=== PATIENT | female | born 1990 | race Caucasian/White ===

== ENCOUNTER 2018-06-24 09:36 | Emergency (ER) | payer OTHER ==
[2018-06-24 09:47] VITALS: BMI 29.8
--- NOTE | 2018-06-24 10:28 | PDOC ---
History of Present Illness <Fabi Suresh - Last Filed: 06/24/18 13:30> - General History Source: Patient Exam Limitations: Language Barrier <Eryn Navarro - Last Filed: 06/24/18 14:26> - General Chief Complaint: Vaginal Bleeding Stated Complaint: VAGINAL BLEEDING Time Seen by Provider: 06/24/18 09:52 Past History <Fabi Suresh - Last Filed: 06/24/18 13:30> - Past Medical History COPD: No - Immunization History Immunization Up to Date: Yes - Suicide/Smoking/Psychosocial Hx Smoking History: Never smoked Information on smoking cessation initiated: No Hx Alcohol Use: No Drug/Substance Use Hx: No <Eryn Navarro - Last Filed: 06/24/18 14:26> - Past Medical History Allergies/Adverse Reactions: Allergies Allergy/AdvReac Type Severity Reaction Status Date / Time No Known Allergies Allergy Verified 06/24/18 09:44 Home Medications: Ambulatory Orders Ferrous Sulfate [Feosol] 325 mg PO DAILY 10/11/17 Vitamins (Sjr) - 1 tab PO DAILY 10/11/17 *Physical Exam - Vital Signs Last Vital Signs Temp Pulse Resp BP Pulse Ox 98.7 F 98 H 17 122/99 100 06/24/18 09:44 06/24/18 09:44 06/24/18 09:44 06/24/18 09:44 06/24/18 09:44 <Fabi Suresh - Last Filed: 06/24/18 13:30> - Vital Signs Last Vital Signs Temp Pulse Resp BP Pulse Ox 98.7 F 98 H 17 122/99 100 06/24/18 09:44 06/24/18 09:44 06/24/18 09:44 06/24/18 09:44 06/24/18 09:44 - Physical Exam General Appearance: No: Apparent Distress Respiratory/Chest: positive: Lungs Clear, Normal Breath Sounds. negative: Respiratory Distress Cardiovascular: positive: Regular Rhythm, Regular Rate, S1, S2. negative: Murmur Gastrointestinal/Abdominal: positive: Normal Bowel Sounds, Soft. negative: Tender, Distended, Guarding, Rebound Neurologic: positive: Alert, Normal Mood/Affect <Eryn Navarro - Last Filed: 06/24/18 14:26> Moderate Sedation - Procedure Monitoring Vital Signs: Procedure Monitoring Vital Signs Temperature 98.7 F 06/24/18 09:44 Pulse Rate 98 H 06/24/18 09:44 Respiratory Rate 17 06/24/18 09:44 Blood Pressure 122/99 06/24/18 09:44 O2 Sat by Pulse Oximetry (%) 100 06/24/18 09:44 <SureshFabi Demetricealexishugo - Last Filed: 06/24/18 13:30> - Procedure Monitoring Vital Signs: Procedure Monitoring Vital Signs Temperature 98.7 F 06/24/18 09:44 Pulse Rate 98 H 06/24/18 09:44 Respiratory Rate 17 06/24/18 09:44 Blood Pressure 122/99 06/24/18 09:44 O2 Sat by Pulse Oximetry (%) 100 06/24/18 09:44 <Eryn Navarro - Last Filed: 06/24/18 14:26> ED Treatment Course - LABORATORY CBC & Chemistry Diagram: 06/24/18 10:51 06/24/18 10:51 - ADDITIONAL ORDERS Additional order review: Laboratory Results 06/24/18 06/24/18 06/24/18 10:51 10:51 10:51 Sodium 136 Potassium 4.1 Chloride 106 Carbon Dioxide 23 Anion Gap 7 L BUN 8 Creatinine 0.7 Creat Clearance w eGFR > 60 Random Glucose 91 Calcium 8.4 L Urine HCG, Qual Negative Blood Type A POSITIVE Antibody Screen Negative 06/24/18 10:51 RBC 3.28 L MCV 79.5 L MCHC 33.9 RDW 14.6 MPV 8.1 Neutrophils % 73.8 Lymphocytes % 19.8 Monocytes % 4.8 Eosinophils % 1.2 Basophils % 0.4 <Fabi Suresh - Last Filed: 06/24/18 13:30> - LABORATORY CBC & Chemistry Diagram: 06/24/18 10:51 06/24/18 10:51 <Eryn Navarro - Last Filed: 06/24/18 14:26> Medical Decision Making - Medical Decision Making The patient was seen and evaluated in conjunction with midlevel provider under my direct supervision, ancillary studies were reviewed. I agree with the plan as outlined by Eryn Navarro. HPI, workup/dispo as outlined. of note, anemia noted, pelvic sono with echogenic masslike density, ?clot vs mass /polyp, will f/u closely with field advisor arranged for appt tomorrow, Dr Dill/Dr Pelletier recs for iron and vit c dc in stable condition, return precautions or worsening sx advised. otc analgesia 06/24/18 13:30 <Fabi Suresh - Last Filed: 06/24/18 13:30> - Medical Decision Making 27 y/o F with no sig pmh presents with vaginal bleeding since March after getting Depo shot, getting worse the past 8 days. Mentions she was due for repeat Depo shot in May, but given heavy bleeding, she was switched to PO OCPs. Saw her DECAY CONTROL OPERATOR 3 days ago, who told her the bleeding is likely side effect of Depo and advised to double the dosage of her OCPs. However, has yet to notice any improvement in her vaginal bleeding. States is going through around 3 pads/hour and is feeling fatigue, weak and a bit lightheaded. Denies sob, cp, abd pain, n/v, dysuria. Heavy vaginal bleeding Plan: UCG, CBC, BMP, type and screen, pelvic ultrasound 06/24/18 10:28 Labs show patient is anemic, though Hgb is >7 Ultrasound done shows large echogenic masslike density within endometrial cavity measuring 2.2 x 1.4 cm which could possibly be large blood clot vs mass/ polyp Patient discussed with Dr. Dill, who stated patient will need hysteroscopy for further evaluation Recommended sending patient home on Iron TID and Vitamin C daily [patient states she will buy from pharmacy]; states patient can f/u with Dr. Pelletier tomorrow on [facility] Plan discussed with patient Stable for d/c 06/24/18 13:22 <Eryn Navarro - Last Filed: 06/24/18 14:26> *DC/Admit/Observation/Transfer <Fabi Suresh - Last Filed: 06/24/18 13:30> - Discharge Dispostion Decision to Admit order: No <Eryn Navarro - Last Filed: 06/24/18 14:26> Diagnosis at time of Disposition: Vaginal bleeding - Discharge Dispostion Disposition: HOME Condition at time of disposition: Stable - Referrals Referrals: Melissa Pelletier MD [Staff Physician] - Call tomorrow - Patient Instructions Printed Discharge Instructions: DI for Vaginal Bleeding Additional Instructions: Thank you for choosing [facility]. It was a pleasure taking care of you. Your labs indicated you are anemic, likely from the vaginal bleeding Please take Iron three time a day and Vitamin C daily - you can get this over the counter Please follow-up with DECAY CONTROL OPERATOR Dr. Pelletier for further evaluation of your bleeding Return to the Emergency Department if your symptoms worsen or persist or have other concerning symptoms. [place] por elegir el [facility]. Fue un placer cuidar de ti. Valarie laboratorios indicaron que usted es anmico, probablemente debido al sangrado vaginal [place] Nery yanelis veces al da y Vitamina C todos los castaneda. Puede obtener esto sin receta. Por favor, anabell un seguimiento con el obstetra / gineclogo Dr. Pelletier para jaquan evaluacin adicional de cisneros sangrado Regrese al Departamento de Emergencias si valarie sntomas empeoran o persisten o si tiene otros sntomas relacionados. Print Language: DIVEHI
[2018-06-24 11:09] LABS: BASO % 0.4 % (0-2.0); EOS % 1.2 % (0-4.5); HEMATOCRIT 26.1 % (32.4-45.2); HEMOGLOBIN 8.8 GM/dL (10.7-15.3); LYMPH % 19.8 % (8-40); MCH 26.9 pg (25.7-33.7); MCHC 33.9 g/dl (32.0-36.0); MEAN CELL VOLUME 79.5 fl (80-96); MEAN PLT VOLUME 8.1 fl (7.5-11.1); MONO % 4.8 % (3.8-10.2); NEUT % 73.8 % (42.8-82.8); PLATELET COUNT 386 K/MM3 (134-434); RBC 3.28 M/mm3 (3.60-5.2); RDW 14.6 % (11.6-15.6); WHITE BLOOD COUNT 8.3 K/mm3 (4.0-10.0)
[2018-06-24 11:23] LABS: ANION GAP 7 MMOL/L (8-16); BLOOD UREA NITROGEN 8 mg/dL (7-18); CALCIUM 8.4 mg/dL (8.5-10.1); CHLORIDE 106 mmol/L (98-107); CO2 23 mmol/L (21-32); CREATININE 0.7 mg/dL (0.55-1.3); GLUCOSE,RANDOM 91 mg/dL (74-106); POTASSIUM 4.1 mmol/L (3.5-5.1); SODIUM 136 mmol/L (136-145)
[2018-06-24 14:58] VITALS: BP 127/69; PULSE 97; TEMP 98.4
== END 2018-06-24 14:38 | disposition home or self-care (01) ==
LOC: JER 09:36
DX: N93.8 Other specified abnormal uterine and vaginal bleeding (principal); D64.9 Anemia, unspecified; Z79.899 Other long term (current) drug therapy
CPT/HCPCS: 36415; 76830-TC; 80048; 84703; 85025; 86850; 86900; 86901; 99281-25

== ENCOUNTER 2018-07-03 16:27 | Emergency (ER) | payer OTHER ==
[2018-07-03 16:36] VITALS: BP 124/76; PULSE 111; TEMP 98.7; BMI 81.8
[2018-07-03 20:49] LABS: BASO % 0.9 % (0-2.0); EOS % 0.7 % (0-4.5); HEMATOCRIT 27.6 % (32.4-45.2); HEMOGLOBIN 9.2 GM/dL (10.7-15.3); LYMPH % 17.4 % (8-40); MCHC 33.5 g/dl (32.0-36.0); MEAN CELL VOLUME 83.7 fl (80-96); MEAN PLT VOLUME 7.6 fl (7.5-11.1); MONO % 5.3 % (3.8-10.2); NEUT % 75.7 % (42.8-82.8); PLATELET COUNT 474 K/MM3 (134-434); WHITE BLOOD COUNT 12.5 K/mm3 (4.0-10.0)
--- NOTE | 2018-07-03 21:02 | PDOC ---
History of Present Illness - General History Source: Patient Exam Limitations: No Limitations <Eryn Navarro - Last Filed: 07/03/18 21:55> <Jasmin Pierre - Last Filed: 07/05/18 01:15> - General Chief Complaint: Revisit, Lab Variance Stated Complaint: LAB VARIANCE Time Seen by Provider: 07/03/18 19:33 Past History - Past Medical History COPD: No - Immunization History Immunization Up to Date: Yes - Suicide/Smoking/Psychosocial Hx Smoking History: Never smoked Hx Alcohol Use: No Drug/Substance Use Hx: No <Eryn Navarro - Last Filed: 07/03/18 21:55> <Jasmin Pierre - Last Filed: 07/05/18 01:15> - Past Medical History Allergies/Adverse Reactions: Allergies Allergy/AdvReac Type Severity Reaction Status Date / Time No Known Allergies Allergy Verified 07/03/18 16:35 Home Medications: Ambulatory Orders Ferrous Sulfate [Iron] 325 mg PO DAILY 07/03/18 Norgestimate-Ethinyl Estradiol [Sprintec 28 Day Tablet] 1 each PO DAILY *Physical Exam - Vital Signs Last Vital Signs Temp Pulse Resp BP Pulse Ox 98.7 F 111 H 20 124/76 99 07/03/18 16:33 07/03/18 16:33 07/03/18 16:33 07/03/18 16:33 07/03/18 18:50 - Physical Exam General Appearance: No: Apparent Distress Respiratory/Chest: positive: Lungs Clear, Normal Breath Sounds. negative: Respiratory Distress Cardiovascular: positive: Regular Rhythm, Regular Rate, S1, S2. negative: Murmur Gastrointestinal/Abdominal: positive: Normal Bowel Sounds, Soft. negative: Tender, Distended, Guarding, Rebound Neurologic: positive: Fully Oriented, Alert, Normal Mood/Affect <Eryn Navarro - Last Filed: 07/03/18 21:55> - Vital Signs Last Vital Signs Temp Pulse Resp BP Pulse Ox 98.7 F 111 H 20 124/76 99 07/03/18 16:33 07/03/18 16:33 07/03/18 16:33 07/03/18 16:33 07/03/18 18:50 <Jasmin Pierre - Last Filed: 07/05/18 01:15> Moderate Sedation - Procedure Monitoring Vital Signs: Procedure Monitoring Vital Signs Temperature 98.7 F 07/03/18 16:33 Pulse Rate 111 H 07/03/18 16:33 Respiratory Rate 20 07/03/18 16:33 Blood Pressure 124/76 07/03/18 16:33 O2 Sat by Pulse Oximetry (%) 99 07/03/18 18:50 <Eryn Navarro - Last Filed: 07/03/18 21:55> - Procedure Monitoring Vital Signs: Procedure Monitoring Vital Signs Temperature 98.7 F 07/03/18 16:33 Pulse Rate 111 H 07/03/18 16:33 Respiratory Rate 20 07/03/18 16:33 Blood Pressure 124/76 07/03/18 16:33 O2 Sat by Pulse Oximetry (%) 99 07/03/18 18:50 <Jasmni Pierre - Last Filed: 07/05/18 01:15> ED Treatment Course - LABORATORY CBC & Chemistry Diagram: 07/03/18 20:40 07/03/18 20:40 - ADDITIONAL ORDERS Additional order review: 07/03/18 20:40 RBC 3.30 L MCV 83.7 MCHC 33.5 RDW 17.0 H MPV 7.6 Neutrophils % 75.7 Lymphocytes % 17.4 Monocytes % 5.3 Eosinophils % 0.7 Basophils % 0.9 <Eryn Navarro - Last Filed: 07/03/18 21:55> - LABORATORY CBC & Chemistry Diagram: 07/03/18 20:40 07/03/18 20:40 - ADDITIONAL ORDERS Additional order review: 07/03/18 20:40 RBC 3.30 L MCV 83.7 MCHC 33.5 RDW 17.0 H MPV 7.6 Neutrophils % 75.7 Lymphocytes % 17.4 Monocytes % 5.3 Eosinophils % 0.7 Basophils % 0.9 <Jasmin Pierre - Last Filed: 07/05/18 01:15> Medical Decision Making - Medical Decision Making 27 y/o F with no sig pmh, recently seen in the ED last week, presents as was sent from SPECIAL EDUCATION TUTOR clinc for low Hgb of 7.2. Patient was seen last week for vaginal bleeding since March after getting Depo shot. Patient had pelvic ultrasound done showing possible large clot vs mass/polyp within endometrial cavity. Patient followed up with SPECIAL EDUCATION TUTOR the next day and was started on Sprintec. Patient states her bleeding actually stopped 2 days ago, but then today noticed some spotting. Is taking Iron pills twice a day and is still pending to get her hysteroscopy done. Mentions having occasional LEBLANC and feeling lightheaded. Denies fever, sob, cp, abd pain, n/v, urinary complaints. Plan: Labs, Type and screen Will consider blood transfusion depending on Hgb level 07/03/18 21:02 Hgb here is 9.2, higher than before No need for blood transfusion Advised to continue f/u with her SPECIAL EDUCATION TUTOR Stable for d/c 07/03/18 21:53 <Eryn Navarro - Last Filed: 07/03/18 21:55> *DC/Admit/Observation/Transfer - Discharge Dispostion Decision to Admit order: No <Eryn Navarro - Last Filed: 07/03/18 21:55> - Attestations Physician Attestion: I reviewed the case with the mid-level practitioner and agree with the mid- level practitioner's assessment, diagnosis and disposition. <Jasmin Pierre - Last Filed: 07/05/18 01:15> Diagnosis at time of Disposition: Anemia Qualifiers: Anemia type: iron deficiency Iron deficiency anemia type: other iron deficiency Qualified Code(s): D50.8 - Other iron deficiency anemias - Discharge Dispostion Disposition: HOME Condition at time of disposition: Stable - Patient Instructions Printed Discharge Instructions: DI for Iron Deficiency Anemia-Adult Additional Instructions: Thank you for choosing [facility]. It was a pleasure taking care of you. Your hemoglobin here was 9.2 Continue follow-up with your SPECIAL EDUCATION TUTOR Continue taking your Iron Return to the Emergency Department if your symptoms worsen or persist or have other concerning symptoms. [place] por elegir el [facility]. Fue un placer cuidar de ti. Wheat hemoglobina aqu fue de 9.2 Continuar el seguimiento con wheat obstetra / gineclogo Contina tomando tu Nery Regrese al Departamento de Emergencias si len sntomas empeoran o persisten o si tiene otros sntomas relacionados. Print Language: SYRIAC - Post Discharge Activity
[2018-07-03 21:10] LABS: ANION GAP 7 MMOL/L (8-16); BLOOD UREA NITROGEN 6 mg/dL (7-18); CALCIUM 8.7 mg/dL (8.5-10.1); CHLORIDE 105 mmol/L (98-107); CO2 22 mmol/L (21-32); CREATININE 0.7 mg/dL (0.55-1.3); GLUCOSE,RANDOM 88 mg/dL (74-106); POTASSIUM 4.3 mmol/L (3.5-5.1); SODIUM 134 mmol/L (136-145)
== END 2018-07-03 22:15 | disposition home or self-care (01) ==
LOC: JER 16:27
DX: D50.8 Other iron deficiency anemias (principal)
CPT/HCPCS: 36415; 80048; 85025; 86850; 86900; 86901; 99282-25

== ENCOUNTER 2018-08-13 11:36 | Emergency (ER) | payer OTHER ==
[2018-08-13 11:49] VITALS: BMI 28.7
--- NOTE | 2018-08-13 12:33 | PDOC ---
History of Present Illness - General Chief Complaint: Vaginal Bleeding Stated Complaint: VAGINAL BLEED Time Seen by Provider: 08/13/18 12:09 - History of Present Illness Initial Comments: 08/13/18 12:30 Ms. Hirsch is a 27 yo female w/ pmh of prior visits for heavy menstruation who presents for evaluation of continued bleeding and pelvic pain. Patient reports she had previously had regular periods until starting depo- provera shot in March. Patient then began to have irregular bleeding. Pelvic US was done which showed possible large clot vs mass/polyp in endometrial cavity. Patient f/u'ed w/ NIGHT AUDITOR and was started on Sprintec. Bleeding had temporarily stopped however resumed 2 days later. Presented to ER 07/03 after outpatient labs showed anemia to 7.2. In ED anemia was 9.2 and patient was discharged for outpatient fu. Patient presents today as she went to NIGHT AUDITOR on Thursday and was started on Medroxyprogesterone 1/day for 5 days. Has currently taken 2 pills however presents as she continues to bleed 10+ pads a day. The patient denies chest pain, shortness of breath, headache and dizziness. Denies fever, chills, nausea, vomit, diarrhea and constipation. Denies dysuria, frequency, urgency and hematuria. Past History - Past Medical History Allergies/Adverse Reactions: Allergies Allergy/AdvReac Type Severity Reaction Status Date / Time No Known Allergies Allergy Verified 08/13/18 11:46 Home Medications: Ambulatory Orders Ferrous Sulfate [Iron] 325 mg PO DAILY 07/03/18 Norgestimate-Ethinyl Estradiol [Sprintec 28 Day Tablet] 1 each PO DAILY Medroxyprogesterone Acetate [Provera] 20 mg PO DAILY #10 tablet 08/13/18 Medroxyprogesterone Acetate [Provera] 20 mg PO DAILY #10 tablet 08/13/18 COPD: No - Immunization History Immunization Up to Date: Yes - Suicide/Smoking/Psychosocial Hx Smoking History: Never smoked Hx Alcohol Use: No Drug/Substance Use Hx: No Review of Systems - Review of Systems Comments:: 08/13/18 12:31 GENERAL/CONSTITUTIONAL: No fever or chills. No weakness. HEAD, EYES, EARS, NOSE AND THROAT: No change in vision. No ear pain or discharge. No sore throat. CARDIOVASCULAR: No chest pain or shortness of breath RESPIRATORY: No cough, wheezing, or hemoptysis. GASTROINTESTINAL: No nausea, vomiting, diarrhea or constipation. GENITOURINARY: No dysuria, frequency, or change in urination. MUSCULOSKELETAL: No joint or muscle swelling or pain. No neck or back pain. SKIN: No rash NEUROLOGIC: No headache, vertigo, loss of consciousness, or change in strength/ sensation. ENDOCRINE: No increased thirst. No abnormal weight change HEMATOLOGIC/LYMPHATIC: No anemia, easy bleeding, or history of blood clots. ALLERGIC/IMMUNOLOGIC: No hives or skin allergy. VAGINAL: +Significant daily bleeding unrelated to menstrual cycle 10+ pads/day. *Physical Exam - Vital Signs Last Vital Signs Temp Pulse Resp BP Pulse Ox 97.5 F L 108 H 17 120/79 100 08/13/18 11:46 08/13/18 11:46 08/13/18 11:46 08/13/18 11:46 08/13/18 11:46 - Physical Exam Comments: 08/13/18 12:31 GENERAL: Awake, alert, and fully oriented, in no acute distress HEAD: No signs of trauma, normocephalic, atraumatic EYES: PERRLA, EOMI, sclera anicteric, conjunctiva clear ENT: Auricles normal inspection, hearing grossly normal, nares patent, oropharynx clear without exudates. Moist mucosa NECK: Normal ROM, supple, no lymphadenopathy, JVD, or masses LUNGS: No distress, speaks full sentences, clear to auscultation bilaterally HEART: Regular rate and rhythm, normal S1 and S2, no murmurs, rubs or gallops, peripheral pulses normal and equal bilaterally. ABDOMEN: Soft, nontender, normoactive bowel sounds. No guarding, no rebound. No masses EXTREMITIES: Normal inspection, Normal range of motion, no edema. No clubbing or cyanosis. NEUROLOGICAL: Cranial nerves II through XII grossly intact. Normal speech, normal gait, no focal sensorimotor deficits SKIN: Warm, Dry, normal turgor, no rashes or lesions noted. VAGINAL: Patient noted to be passing clots. No CMT, no adnexal tenderness. No discharge. ED Treatment Course - LABORATORY CBC & Chemistry Diagram: 08/13/18 13:21 08/13/18 13:21 Medical Decision Making - Medical Decision Making 08/13/18 14:10 Ms. Hirsch is a 27 yo female w/ pmh as described who presents for evaluation of chronic heavy menstrual bleeds. Patient evaluated for anemia and discussed with NIGHT AUDITOR (Dr. Pelletier). Upreg negative. H/H stable at 9.6/29.2. OB/ EVENT DESIGNER recommended doubling medroxyprogesterone and f/u in office Thursday. Discussed w/ patient who will comply. Patient given tylenol for pain control and 1L NS. 08/13/18 14:43 Repeat pulse 93 w/ BP 133/77. No concern for acute process at this time. Discharging to home. *DC/Admit/Observation/Transfer Diagnosis at time of Disposition: Vaginal bleeding - Discharge Dispostion Disposition: HOME - Prescriptions Prescriptions: Medroxyprogesterone Acetate [Provera] 20 mg PO DAILY #10 tablet Medroxyprogesterone Acetate [Provera] 20 mg PO DAILY #10 tablet - Referrals Referrals: Melissa Pelletier MD [Staff Physician] - - Patient Instructions Printed Discharge Instructions: DI for Vaginal Bleeding Additional Instructions: You were evaluated today in the ER for your vaginal bleeding. We discussed your case with your NIGHT AUDITOR who recommended doubling your medications and follow-up on Thursday. We have sent a new prescription to your pharmacy so you may do this. Please follow-up with NIGHT AUDITOR on Thursday for further evaluation. Return to ER if any weakness, fever, increase in pain, or other concerning symptoms. Hoy te evaluaron en la jolene de emergencias por tu sangrado vaginal. Discutimos cisneros rita con cisneros obstetra / gineclogo que recomend duplicar len medicamentos y hacer un seguimiento el yee. Hemos enviado jaquan nueva receta a cisneros farmacia para que pueda hacer esto. Por favor anabell un seguimiento con un obstetra / gineclogo el yee para jaquan evaluacin adicional. Regrese a la jolene de emergencias si presenta alguna debilidad, fiebre, aumento del dolor u otros sntomas - Post Discharge Activity
[2018-08-13] MEDS ORDERED: SODIUM CHLORIDE 1,000 ML IV STA (13:22)
[2018-08-13 13:29] LABS: BASO % 0.6 % (0-2.0); EOS % 1.1 % (0-4.5); HEMATOCRIT 29.2 % (32.4-45.2); HEMOGLOBIN 9.6 GM/dL (10.7-15.3); LYMPH % 20.1 % (8-40); MCH 27.5 pg (25.7-33.7); MEAN CELL VOLUME 83.2 fl (80-96); MONO % 4.3 % (3.8-10.2); NEUT % 73.9 % (42.8-82.8); PLATELET COUNT 434 K/MM3 (134-434); RBC 3.51 M/mm3 (3.60-5.2); RDW 16.6 % (11.6-15.6); WHITE BLOOD COUNT 8.6 K/mm3 (4.0-10.0)
[2018-08-13 13:49] LABS: URINE APPEARANCE BLOODY; URINE COLOR RED
[2018-08-13] MEDS ORDERED: ACETAMINOPHEN 500 MG TABLET (FP) PO ONE (14:10)
[2018-08-13 14:15] LABS: HCG,QUALITATIVE URINE Negative
[2018-08-13] MEDS ORDERED: ACETAMINOPHEN 325 MG TABLET (FP) ONE (14:20)
--- NOTE | 2018-08-13 14:24 | PDOC ---
Attending Attestation - Resident Resident Name: Eliud Denney - ED Attending Attestation I have performed the following: I have examined & evaluated the patient, The case was reviewed & discussed with the resident, I agree w/resident's findings & plan, Exceptions are as noted - HPI HPI: 08/13/18 14:18 The patient is a 27 year old female with no significant past medical history of who presents to the emergency department with vaginal bleeding. The patient notes she started experiencing irregular periods/ bleeding ever since she got her depo-provera shot in March. The patient states she was seen here at [facility] multiple times for vaginal bleeding (last seen on 07/03/18). The patient saw her IN STORE BANKER and was started on an OCP, which temporarily stopped her vaginal bleeding for 2 days before it resumed again. Patient states she saw her OG/GROUP COUNSELOR Thursday and was started on Medroxyprogesterone (1 tablet per day for 5 days), with no improvement. Today, the patient notes she goes through 10+ pads a day. The patient denies chest pain, shortness of breath, headache, dizziness, fever , chills, nausea, vomit, diarrhea or constipation. Allergies: NKDA Past surgical history: none reported Social history: None reported - Physicial Exam PE: 08/13/18 14:24 GENERAL: Awake, alert, and fully oriented, in no acute distress. HEAD: No signs of trauma EYES: PERRLA, EOMI, sclera anicteric, conjunctiva clear ENT: Auricles normal inspection, hearing grossly normal, nares patent, oropharynx clear without exudates. Moist mucosa NECK: Nontender, no stepoffs, Normal ROM, supple, no lymphadenopathy, JVD, or masses LUNGS: Breath sounds equal, clear to auscultation bilaterally. No wheezes, and no crackles HEART: Regular rate and rhythm, normal S1 and S2, no murmurs, rubs or gallops ABDOMEN: Soft, nontender, normoactive bowel sounds. No guarding, no rebound. No masses EXTREMITIES: Normal range of motion, no edema. No clubbing or cyanosis. No cords, erythema, or tenderness NEUROLOGICAL: Cranial nerves II through XII intact. 5/5 strength and sensation in all extremities, Normal speech, normal gait, normal cerebellar function SKIN: Warm, Dry, normal turgor, no rashes or lesions noted. - Medical Decision Making 08/13/18 14:24 27 F with menometrorrhagia. Will check for anemia, though pt is well appearing. - Labs - UA, UPT - C/s OB 08/13/18 14:29 CBC wnl Consulted pt's OB Dr. Pelletier, who recommends doubling pt's medroxyprogesterone and f/u in clinic next week. 08/13/18 14:45 Repeat HR 93 Pt is well appearing, with normal vitals. Clinically stable for DC at this time. I discussed the physical exam findings, ancillary test results and final diagnoses with the patient. I answered all of the patient's questions. The patient was satisfied with the care received and felt comfortable with the discharge plan and treatment plan. The patient agrees to follow up with the primary care physician within 24-72 hours.
[2018-08-13 14:42] LABS: URINE RBC >100 /hpf (0-4)
[2018-08-13 14:47] VITALS: BP 133/72; PULSE 93; TEMP 98.2
== END 2018-08-13 15:08 | disposition home or self-care (01) ==
LOC: JER 11:36
PROC: 3E0337Z Introduction of Electrolytic and Water Balance Substance into Peripheral Vein, Percutaneous Approach (ICD-10-PCS; principal; 2018-08-13)
DX: N92.1 Excessive and frequent menstruation with irregular cycle (principal)
CPT/HCPCS: 36415; 81003; 84703; 85025; 87086; 96360; 99283-25; J7030

== ENCOUNTER 2018-08-18 04:55 | Day surgery (SDC) | payer OTHER ==
[2018-08-17 11:59] VITALS: BMI 28.8
--- NOTE | 2018-08-18 13:24 | HP ---
Admitting History and Physical - Admission Chief Complaint: DUB History of Present Illness: 28yo with DUB since March when she had a Depo shot Seen in ER for HMB, found to be anemic (Hgb 7). Uterus with some distention from possible clots. Seen in office thereafter by me, given OCP taper with improvement in bleeding Withdrawal bleed from OCP was heavy, given Provera course by another physician. Bleeding did not improve Returned to ER for bleeding, found to have Hgb 9. Advised by me to double up on her progesterone to 20mg which helped slow down her bleeding Seen in office yesterday, decision made to proceed to OR for hysteroscopy, D&C History Source: Patient Limitations to Obtaining History: Language Barrier - Past Medical History Reproductive: No: Ectopic , Endometriosis, Fibroids, PID, Polycystic Ovary Syndrome, Postmenopausal, Other ...LMP Comment: unsure-bleeding since march ...: No Heme/Onc: Yes: Anemia - Smoking History Smoking history: Never smoked - Alcohol/Substance Use Hx Alcohol Use: No History of Substance Use: reports: None - Social History Usual Living Arrangement: Yes: With Spouse, With Parent ADL: Independent History of Recent Travel: No Home Medications - Allergies Allergies/Adverse Reactions: Allergies Allergy/AdvReac Type Severity Reaction Status Date / Time No Known Allergies Allergy Verified 08/17/18 11:51 - Home Medications Home Medications: Ambulatory Orders Ferrous Sulfate [Iron] 325 mg PO DAILY 07/03/18 Medroxyprogesterone Acetate [Provera] 20 mg PO DAILY 08/17/18 Physical Examination Vital Signs: Vital Signs Temperature 98.3 F 08/18/18 12:11 Pulse Rate 101 H 08/18/18 12:11 Respiratory Rate 16 08/18/18 12:11 Blood Pressure 145/69 08/18/18 12:11 O2 Sat by Pulse Oximetry (%) 100 08/18/18 12:11 Constitutional: Yes: Well Nourished, No Distress, Calm Eyes: Yes: WNL, Conjunctiva Clear, EOM Intact HENT: Yes: WNL, Atraumatic, Normocephalic Neck: Yes: WNL, Supple, Trachea Midline Cardiovascular: Yes: WNL, Regular Rate and Rhythm Respiratory: Yes: WNL, Regular, CTA Bilaterally Gastrointestinal: Yes: WNL, Normal Bowel Sounds Musculoskeletal: Yes: WNL Extremities: Yes: WNL Edema: No Integumentary: Yes: WNL Neurological: Yes: WNL, Alert, Oriented ...Motor Strength: WNL Psychiatric: Yes: WNL Imaging - Results Ultrasound: Report Reviewed Assessment/Plan 28yo with DUB, provoked by Depo, here for D&C NPO, IVFs Teds Plan for D&C, hysteroscopy- risk of procedure including bleeding, perforation requiring laparoscopy discussed with patient. Nenita Pelletier MD
[2018-08-18] MEDS ORDERED: MIDAZOLAM HCL 2 MG/2 ML SINGLE DOSE VIAL ONE (15:35)
[2018-08-18] MEDS ORDERED: DEXAMETHASONE SOD PHOSPHATE 4 MG/1 ML VIAL ONE (15:35)
[2018-08-18] MEDS ORDERED: LIDOCAINE HCL/PF 2% SDV 5ML VIAL ONE (15:35)
[2018-08-18] MEDS ORDERED: PROPOFOL 20 ML ONE (15:35)
[2018-08-18] MEDS ORDERED: KETOROLAC TROMETHAMINE 30 MG/1 ML VIAL ONE (16:05)
--- NOTE | 2018-08-18 16:32 | OP ---
Operative Note - Note: Operative Date: 08/18/18 Pre-Operative Diagnosis: Dysfunctional Uterine Bleeding Operation: Dilation and Curretage, Diagnostic Hysteroscopy Findings: Normal uterine cavity, no lesions or masses, normal ostia bilaterally Post-Operative Diagnosis: Same as Pre-op Surgeon: Melissa Pelletier Anesthesia: MAC Estimated Blood Loss (mls): 25 Operative Report Dictated: Yes
[2018-08-18] MEDS ORDERED: ONDANSETRON 4 MG/2 ML VIAL IVPUSH PRN (17:05)
[2018-08-18] MEDS ORDERED: oxyCODONE HCL 5 MG TABLET PO PRN ×2 (17:05)
[2018-08-18] MEDS ORDERED: LACTATED RINGERS SOLUTION 1,000 ML IV SCH (17:15)
[2018-08-18 19:15] VITALS: BP 126/75; PULSE 89; TEMP 98.3
--- NOTE | 2018-08-19 07:25 | OP ---
DATE OF OPERATION: 08/18/2018 PREOPERATIVE DIAGNOSIS: Dysfunctional uterine bleeding. POSTOPERATIVE DIAGNOSIS: Dysfunctional uterine bleeding. PROCEDURE: Diagnostic hysteroscopy, dilation and curettage. SURGEON: Melissa Pelletier MD ANESTHESIA: MAC. INTRAVENOUS FLUIDS: LR, 650 mL. ESTIMATED BLOOD LOSS: 25. URINE OUTPUT: Not measured. FINDINGS: Normal endometrial cavity. No masses. No lesions seen. Normal ostia bilaterally. Normal endocervical canal. COMPLICATIONS: None. CONDITION: Stable to recovery. After the appropriate consents were signed patient was taken to the operating room where MAC anesthesia was administered. She was placed in dorsal lithotomy position. Surgical field was prepped and draped in the normal sterile fashion. Timeout was performed confirming correct patient and procedure. A sterile speculum was inserted into the vagina with good visualization of the cervix. The anterior lip of the cervix was grasped with a single-tooth tenaculum. The cervix was then dilated with the Acharya dilators to accommodate the diagnostic hysteroscope which was inserted under fluid distention. The endometrial cavity was inflated and noted to be normal. No masses were seen. Smooth contour aside from the expected fluffy endometrium. Normal ostia were seen bilaterally. Hysteroscope was removed. Curettage was done until a gritty texture was achieved in all 4 quadrants. Hysteroscope was then reintroduced. No active brisk bleeding was seen. Nothing further was seen. The hysteroscope was then removed. The single-tooth tenaculum was then removed. There was bleeding from the patient's right cervical bite site from the tenaculum. This was made hemostatic with pressure and silver nitrate. Speculum was then removed. Sponge, lap, needle counts were correct. Patient was taken from the operating room to the recovery area in stable condition. MD DARRYN PINEDA/[id number]
--- NOTE | 2018-08-20 17:40 | PATH ---
Surgical Pathology Report Patient Name: TERELL FORD [facility]. Rec. #: [id number] /Age/Gender: 1990 (Age: 28) / F Account: [id number] Location: [facility] SURGICAL Taken: 08/18/2018 Received: 08/19/2018 Reported: 08/20/2018 Physicians: Melissa Pelletier Specimen(s) Received ENDOMETRIAL CURETTINGS Clinical History Dysfunctional uterine bleeding Final Diagnosis ENDOMETRIAL CURETTINGS, DILATION AND CURETTAGE: FRAGMENTS OF WEAKLY PROLIFERATIVE ENDOMETRIUM WITH CHRONIC ENDOMETRITIS AND BENIGN ENDOCERVICAL TISSUE. Electronically Signed Page Puga M.D. Gross Description Received in formalin labeled "endometrial curettings," is a 1.2 x 0.8 x 0.2 cm aggregate of lepe-brown soft tissue fragments. The formalin is filtered and the specimen is entirely submitted in one cassette. /08/19/2018 saudi/08/19/2018
== END 2018-08-18 19:05 | disposition home or self-care (01) ==
LOC: JASU-SURG 04:55
PROVIDERS: ATTEND Obstetrics & Gynecology
PROC: 0UDB7ZX Extraction of Endometrium, Via Natural or Artificial Opening, Diagnostic (ICD-10-PCS; principal; 2018-08-18 13:00)
PROC: 0UJD8ZZ Inspection of Uterus and Cervix, Via Natural or Artificial Opening Endoscopic (ICD-10-PCS; 2018-08-18 13:00)
DX: N93.8 Other specified abnormal uterine and vaginal bleeding (principal)
CPT/HCPCS: 88305-TC; 94760